=== PATIENT | male | born 1975 | race Caucasian/White ===

== ENCOUNTER → 2016-10-07 | Outpatient (CLI) | payer BC ==
[~2016-10-07] MED LIST: GADOBUTROL 10 MMOL/10 ML (GADAVIST) VIAL IV ONE
--- NOTE | 2016-10-07 08:42 | Diagnostic Imaging Report ---
INDICATION: Pre-MRI screening, history of welding AP and lateral views of the skull are obtained. Bony structures appear unremarkable. There is no metallic foreign body over the orbits. IMPRESSION: No evidence of metallic foreign body overlying the orbits. Report was called to [facility] by demar at 8:41 am. Dictated by: Dictated on workstation # [id number]
--- NOTE | 2016-10-07 13:54 | Diagnostic Imaging Report ---
PROCEDURE: MR imaging of the brain with and without contrast. TECHNIQUE: Multiplanar, multisequence MR imaging of the brain was performed with and without contrast. INDICATION: Parkinson's disease. CONTRAST: 10 mL of Gadavist is administered intravenously. FINDINGS: There is no diffusion restriction to suggest an acute infarct or other diffusion abnormality. There is normal signal in the grimm and white matter with no significant edema, demyelinating lesions, or enhancing mass. There is an enhancing focus in the left frontoparietal region, which is probably related to a tiny capillary telangiectasia or developmental venous anomaly with small vessels seen around the area. No ventriculomegaly. No extra-axial fluid collections seen. The pituitary gland is normal in size. No hypothalamic or pineal region mass. There is a symmetric appearance of the internal auditory canals and inner ear structures. The central vascular flow-voids appear grossly unremarkable. There is a mucosal thickening in the maxillary sinuses and anterior and middle ethmoidal air cells. Mild mucosal thickening and enhancement is also seen in the frontal sinuses. IMPRESSION: 1. No acute infarct or enhancing mass. Tiny enhancing focus in the left frontoparietal region is likely related to a small incidentally found developmental venous anomaly or capillary telangiectasia. 2. Sinus disease most prominent in the maxillary sinuses and ethmoidal air cells. Dictated by: Dictated on workstation # [id number]
== END ==
LOC: RAD 08:04
PROVIDERS: ATTEND Psychiatry & Neurology Neurology
DX: G20 Parkinson's disease (principal)
CPT/HCPCS: 70250; 70553

== ENCOUNTER → 2017-01-24 | Emergency (ER) | payer BC ==
[~2017-01-24] VITALS: Ht 188 cm; Wt 106.6 kg
[~2017-01-24] MED LIST changes: +ASPI-586 PO; +CARB1TAB19; -GADOBUTROL 10 MMOL/10 ML (GADAVIST) VIAL IV ONE; +GARL1TAB2 PO; +LOSA1TAB69; +OMEG1000 PO
--- NOTE | 2017-01-24 20:32 | ED General ---
General Chief Complaint: Laceration Stated Complaint: L HAND PINKIE CUT Nursing Triage Note: laceration to L 5th finger Nursing Sepsis Screen: No Definite Risk Source of Information: Patient Exam Limitations: No Limitations History of Present Illness Time Seen by Provider: 20:19 Initial Comments 41-year-old male patient presents to the emergency department complains of a laceration to his left fifth finger. States he cut the finger on a piece of thin sheet metal. denies numbness. Timing/Duration: 1/2 Hour Allergies and Home Medications Allergies Coded Allergies: No Known Drug Allergies (Unverified , 10/07/16) Home Medications Aspirin 81 Mg Tablet.dr, 81 MG PO, (Reported) Carbidopa/Levodopa 1 Each Tablet, (Reported) Garlic 1 Each Tablet, 1 EACH PO, (Reported) Losartan/Hydrochlorothiazide 1 Each Tablet, (Reported) [place]-3 Fatty Acids 1,000 Mg Capsule, 1,000 MG PO, (Reported) Constitutional: no symptoms reported Musculoskeletal: No joint pain, No joint swelling Skin: see HPI Psychiatric/Neurological: Denies Numbness, Denies Paresthesia, Denies Tingling , Denies Weakness All Other Systems Reviewed Negative Unless Noted: Yes (Negative excepted noted.) Past Fdnciiu-Ihoijy-Hnqmjv Hx Patient Social History Alcohol Use: Denies Use Recreational Drug Use: No Type Used: Smokeless Tobacco 2nd Hand Smoke Exposure: No Recent Foreign Travel: No Contact w/Someone Who Travel: No Recent Infectious Disease Expo: No Immunizations Up To Date Tetanus Booster (TDap): Unknown Surgeries History of Surgeries: No Respiratory History of Respiratory Disorde: No Cardiovascular History of Cardiac Disorders: Yes Cardiac Disorders: Hypertension Neurological History of Neurological Disord: Yes Neurological Disorders: Parkinson's Disease Genitourinary History of Genitourinary Disor: Yes Genitourinary Disorders: Kidney Stones Gastrointestinal History of Gastrointestinal Di: No Musculoskeletal History of Musculoskeletal Dis: No Endocrine History of Endocrine Disorders: No HEENT History of HEENT Disorders: No Cancer History of Cancer: No Psychosocial History of Psychiatric Problem: No Integumentary History of Skin or Integumenta: No Blood Transfusions History of Blood Disorders: No Reviewed Nursing Assessment Reviewed/Agree w Nursing PMH: Yes Family Medical History Significant Family History: No Pertinent Family Hx Physical Exam Vital Signs Vital Sign - Last 12Hours 01/24/17 20:03 Temp 98.2 Pulse 93 Resp 18 B/P (MAP) 129/93 Pulse Ox 96 Capillary Refill : Less Than 3 Seconds General Appearance: No Apparent Distress, WD/WN Cardiovascular: Normal Peripheral Pulses Extremity: Normal Capillary Refill, Normal Range of Motion, Non Tender, Other ( 2 cm flap laceration of the radial side of the 5th finger w/o active bleeding.) Neurologic/Psychiatric: Alert, Oriented x3, No Motor/Sensory Deficits (2 point discrimination intact), Normal Mood/Affect Skin: Normal Color, Warm/Dry, Other (2 cm flap laceration of the radial side of the 5th finger w/o active bleeding.) Laceration Repair : Wound Location: Other (left fifth finger) Wound Length (cm): 2 Wound's Depth, Shape: flap, sub Q Wound Explored: clean Irrigated w/ Saline (ccs): 60 Betadine Prep?: Yes (and scrubbed with chlorhexidine and sterile saline) Anesthesia: 1% Lidocaine Volume Anesthetic (ccs): 2 Suture: Ethlion Suture Size: 4-0 Number of Sutures: 4 Layer Closure?: 1 Sterile Dressing Applied?: Yes Progress Blood loss minimal. Patient tolerated the procedure well. Progress/Results/Core Measures Results/Orders Vital Signs/I&O Vital Sign - Last 12Hours 01/24/17 20:03 Temp 98.2 Pulse 93 Resp 18 B/P (MAP) 129/93 Pulse Ox 96 Blood Pressure Mean: 105 Departure Impression Impression: Primary Impression: Laceration of finger of left hand Disposition: 01 HOME, SELF-CARE Condition: Improved Departure-Patient Inst. Decision time for Depature: 20:31 Referrals: RAÚL GUZMAN MD (PCP/Family) Primary Care Physician Patient Instructions: Laceration Repair With Stitches (DC) Add. Discharge Instructions: All discharge instructions reviewed with patient and/or family. Voiced understanding. Tylenol extra strength [id number] as directed for pain. Ibuprofen 800 mg by mouth every 8 hours as needed for pain. Tomorrow morning remove the bandage, shower with antibacterial soap and pat dry. Apply triple antibiotic ointment twice daily for 3 days and cover with a Band-Aid. Follow- up with your family practitioner for recheck if needed. Return to the emergency department in 10 days for suture removal. Return immediately to the emergency department for worsened pain, redness, drainage, fever, or any other concerns. LEV POWELL Jan 24, 2017 20:32
[2017-01-24] MEDS: LIDOCAINE 1% INJ 20 ML (XYLOCAINE) VIAL INJ STA (21:46)
[2017-01-24] MEDS: TETANUS,DIPTH,PERTUSS P/F (BOOSTRIX) 0.5 ML VIAL IM STA (21:46)
[2017-01-24 21:47] VITALS: BP 129/93
--- OUTSIDE RECORDS SUMMARY | 2017-01-27 08:33 | XMS REPORT ---
Author Author RAÚL GUZMAN [facility] [place] eClinicalWorks Address Unknown Phone Unavailable Care Team Providers Care Licensed Plumber Name Role Phone RAÚL GUZMAN Unavailable Allergies No Known Allergies Problems Problem Type Condition Code Onset Dates Condition Status Problem Essential hypertension I10 Active Problem Arthritis M19.90 Active Problem Mixed dyslipidemia E78.2 Active Problem Prediabetes R73.09 Active Problem Parkinsons disease G20 Active Medications Medication Code System Code Instructions Start Date End Date Status Dosage Lisinopril [facility] [address]-77 20 mg Orally Once a day Feb 20, 2015 1 tablet Results No Known Results Summary Purpose eClinicalWorks Submission
--- OUTSIDE RECORDS SUMMARY | 2017-01-27 08:33 | XMS REPORT ---
Author Author MARY ANN FARAH [facility] eClinical[employer] Address Unknown Phone Unavailable Care Team Providers Care Accounts Administrator Name Role Phone MARY ANN FARAH CP Unavailable Allergies, Adverse Reactions, Alerts Substance Reaction Event Type Augmentin Info Not Available Drug Allergy Problems Problem Type Condition Code Onset Dates Condition Status Problem Arthritis M19.90 Active Assessment Essential hypertension I10 Active Problem Essential hypertension I10 Active Assessment Arthritis M19.90 Active Medications Medication Code System Code Instructions Start Date End Date Status Dosage Garlic [facility] [address] 1000 MG Orally not defined Fish Oil [facility] [address]-45 1000 MG Orally Once a day 1 capsule Multiple Vitamin [facility] [address]-25 Orally Once a day 1 tablet Aspirin [facility] [address]39-[address]87 81 MG Orally Once a day 1 tablet Diclofenac Sodium [facility] [address]-16 75 MG Orally Once a day Mar 20, 2015 1 tablet Lisinopril [facility] [address]-76 10 MG Orally Once a day Feb 20, 2015 1 tablet Procedures Procedure Coding System Code Date Office Visit, Est Pt., Level 3 CPT-4 97513 Mar 20, 2015 Vital Signs Date/Time: Mar 20, 2015 Temperature 98.4 F Weight 236.3 lbs Height 74.5 in BMI 29.93 Index Blood Pressure Diastolic 88 mmHg Blood Pressure Systolic 140 mmHg Cardiac Monitoring Heart Rate 72 bpm Results No Known Results Summary Purpose eClinicalWorks Submission
--- OUTSIDE RECORDS SUMMARY | 2017-01-27 08:33 | XMS REPORT | Continuity of Care Document ---
Author Author [facility] Address Unknown Phone Unavailable Allergies Active Description Code Type Severity Reaction Onset Reported/Identified Relationship to Patient Clinical Status Yes Augmentin Drug Allergy N/A N/A 03/02/2014 Medications Problems Date Dx Coded Attending Type Code Diagnosis Diagnosed By 03/02/2014 CATIA HOWELL APRN 357.9 NEUROPATHY UNSP Procedures Results Encounters ACCT No. Visit Date/Time Discharge Status Pt. Type Provider Facility Loc./Unit Complaint [id number] 03/02/2014 18:16:00 03/02/2014 23: 59:59 CLS Outpatient CATIA HOWELL APRN
--- OUTSIDE RECORDS SUMMARY | 2017-01-27 08:33 | XMS REPORT ---
Author Author RAÚL GUZMAN [employer] Address Unknown Phone Unavailable Care Team Providers Care Inventory Manager Name Role Phone RAÚL GUZMAN CP Unavailable Allergies, Adverse Reactions, Alerts Substance Reaction Event Type Lisinopril cough Drug Allergy Augmentin Info Not Available Drug Allergy Problems Problem Type Condition Code Onset Dates Condition Status Assessment Parkinsons disease G20 Active Assessment Prediabetes R73.09 Active Problem Essential hypertension I10 Active Problem Arthritis M19.90 Active Problem Mixed dyslipidemia E78.2 Active Assessment Essential hypertension I10 Active Assessment Mixed dyslipidemia E78.2 Active Problem Prediabetes R73.09 Active Problem Parkinsons disease G20 Active Medications Medication Code System Code Instructions Start Date End Date Status Dosage Carbidopa-Levodopa [facility] [address]-40 25-100 MG Orally Three times a day 1 tablet Multiple Vitamin [facility] [address]-81 Orally Once a day [address] [facility] [address]-82 25 MG Orally Once a day Apr 11, [address] [facility] [address] 81 MG Orally Once a day 1 tablet Fish Oil [facility] [address]-25 1000 MG Orally Once a day [address] [facility] [address] 1000 MG Orally not defined Procedures Procedure Coding System Code Date COMPREHEN METABOLIC PANEL CPT-4 33692 Apr 11, 2016 COMPLETE CBC W/AUTO DIFF WBC CPT-4 77784 Apr 11, 2016 LIPID PANEL CPT-4 95213 Apr 11, 2016 Office Visit, Est Pt., Level 3 CPT-4 77989 Apr 11, 2016 RBC SED RATE, AUTOMATED CPT-4 91478 Apr 11, 2016 VENIPUNCT, ROUTINE* CPT-4 31478 Apr 11, 2016 Vital Signs Date/Time: Apr 11, 2016 Cardiac Monitoring Heart Rate 82 bpm Weight 235.7 lbs Height 74.5 in BMI 29.85 Index Blood Pressure Diastolic 78 mmHg Blood Pressure Systolic 147 mmHg Results Name Result Date Reference Range Unit Abnormality Flag ESR/SED RATE ----Sedimentation Rate-[place]gren 31 [id number] 0-15 mm/hr H LIPID PANEL ----LDL Cholesterol Calc 76 49389715 0-99 mg/dL ----VLDL Cholesterol [place] 74 20595681 5-40 mg/dL H ----Cholesterol, Total 175 30896863 100-199 mg/dL ----HDL Cholesterol 25 97714669 >39 mg/dL L ----Triglycerides 372 89036130 0-149 mg/dL H ROUTINE VENIPUNCTURE CBC ----MCHC 33.1 78855784 31.5-35.7 g/dL ----MCH 28.4 19831708 26.6-33.0 pg ----Platelets 239 11738475 150-379 x10E3/uL ----RDW 13.9 37847780 12.3-15.4 % ----Immature Granulocytes 0 35836504 % ----Immature Grans (Abs) 0.0 92596357 0.0-0.1 x10E3/uL ----Lymphs 25 13706953 % ----Monocytes 10 07526733 % ----Neutrophils 62 88124667 % ----Neutrophils (Absolute) 4.0 81438073 1.4-7.0 x10E3/uL ----Hematocrit 47.4 60260488 37.5-51.0 % ----Lymphs (Absolute) 1.6 22466031 0.7-3.1 x10E3/uL ----MCV 86 76422886 79-97 fL ----RBC 5.53 85626353 4.14-5.80 x10E6/uL ----Eos 2 25512968 % ----Basos 1 22766848 % ----Hemoglobin 15.7 21767288 12.6-17.7 g/dL ----Baso (Absolute) 0.1 79147091 0.0-0.2 x10E3/uL ----WBC 6.3 42199132 3.4-10.8 x10E3/uL ----Monocytes(Absolute) 0.6 83358265 0.1-0.9 x10E3/uL ----Eos (Absolute) 0.1 [id number] 0.0-0.4 x10E3/uL CMP ----Potassium, Serum 4.6 66155029 3.5-5.2 mmol/L ----Sodium, Serum 142 68348727 136-144 mmol/L ----BUN/Creatinine Ratio 11 78911166 9-20 ----eGFR If Africn Am 95 10058060 >59 mL/min/1.73 ----eGFR If NonAfricn Am 82 58136157 >59 mL/min/1.73 ----Creatinine, Serum 1.11 73177422 0.76-1.27 mg/dL ----BUN 12 66991735 6-24 mg/dL ----Glucose, Serum 89 01002536 65-99 mg/dL ----AST (SGOT) 24 31270969 0-40 IU/L ----Globulin, Total 3.0 09091037 1.5-4.5 g/dL ----ALT (SGPT) 18 00782132 0-44 IU/L ----A/G Ratio 1.5 80731979 1.1-2.5 ----Bilirubin, Total 0.7 85185251 0.0-1.2 mg/dL ----Alkaline Phosphatase, S 60 10764365 39-117 IU/L ----Carbon Dioxide, Total 24 71779684 18-29 mmol/L ----Calcium, Serum 9.8 73411553 8.7-10.2 mg/dL ----Protein, Total, Serum 7.5 03440305 6.0-8.5 g/dL ----Albumin, Serum 4.5 41352653 3.5-5.5 g/dL ----Chloride, Serum 102 70638262 97-106 mmol/L Summary Purpose eClinicalWorks Submission
== END | disposition home or self-care (01) ==
LOC: EDUNIT# 19:47 → ER 19:48
DX: S61.217A Laceration without foreign body of left little finger without damage to nail, initial encounter (principal); I10 Essential (primary) hypertension; G20 Parkinson's disease; Z87.442 Personal history of urinary calculi; W45.8XXA Other foreign body or object entering through skin, initial encounter; Z79.82 Long term (current) use of aspirin
CPT/HCPCS: 12001; 90715